=== PATIENT | female | born 1990 | race Caucasian/White ===

== ENCOUNTER 2023-10-04 02:51 | Outpatient (CLI) | payer OTHER | END 2023-10-04 23:59 | disposition short-term general hospital (02) | LOC: EMS 02:51 | DX: R09.89 Other specified symptoms and signs involving the circulatory and respiratory systems (principal); R00.0 Tachycardia, unspecified; R45.89 Other symptoms and signs involving emotional state | CPT/HCPCS: A0425; A0429 ==

== ENCOUNTER 2023-11-17 20:22 | Outpatient (CLI) | payer OTHER | END 2023-11-17 20:23 | disposition critical access hospital (66) | LOC: EMS 20:22 | DX: R07.89 Other chest pain (principal) | CPT/HCPCS: A0425; A0429 ==

== ENCOUNTER 2023-11-17 20:51 | Emergency (ER) | payer OTHER ==
[2023-11-17 21:38] LABS: BASOPHILS # (AUTO) 0.1 10^3/uL (0.0-0.1); BASOPHILS % (AUTO) 0.5 %; EOSINOPHILS # (AUTO) 0.3 10^3/uL (0.0-0.7); HCT - HEMATOCRIT 40.9 % (37.0-47.0); HGB - HEMOGLOBIN 13.4 g/dL (12.0-16.0); LYMPHOCYTES # (AUTO) 2.5 10^3/uL (1.5-3.5); MEAN CORPUSCULAR HEMOGLOBIN 28.4 pg (27.0-31.0); MEAN CORPUSCULAR HGB CONC 32.8 g/dL (32.0-36.0); MEAN CORPUSCULAR VOLUME 86.7 fL (81.0-99.0); MEAN PLATELET VOLUME 9.6 fL (7.9-10.8); MONOCYTES # (AUTO) 0.8 10^3/uL (0.0-1.0); MONOCYTES % (AUTO) 5.2 %; NEUTROPHILS % (AUTO) 74.6 %; PLT - PLATELET COUNT 360 10^3/uL (130-450); RED BLOOD COUNT 4.72 10^6/uL (4.20-5.40); RED CELL DISTRIBUTION WIDTH 13.5 % (12.0-15.0); WHITE BLOOD COUNT 14.8 x10^3/uL (4.8-10.8)
[2023-11-17] MEDS: SODIUM CHLORIDE 0.9% 1,000 ML IV STA (21:40)
[2023-11-17] MEDS: ONDANSETRON 4 MG/2 ML VIAL IVP STA (21:41)
[2023-11-17] MEDS: HYDROmorphone 1 MG/ML CARPUJECT IVP STA (21:42)
[2023-11-17 21:53] LABS: ALBUMIN 4.2 g/dL (3.2-5.5); ALBUMIN/GLOBULIN RATIO 1.5 (1.0-2.2); BILIRUBIN,TOTAL 0.2 mg/dL (0.2-1.0); CALCIUM 9.2 mg/dL (8.5-10.3); CREATININE 0.7 mg/dL (0.6-1.3); POTASSIUM 3.7 mmol/L (3.5-4.5)
[2023-11-17 21:57] LABS: TROPONIN I HIGH SENSITIVITY 2.9 ng/L (2.3-14.8)
[2023-11-17] MEDS: MORPHINE 10 MG/ML VIAL IVP STA (23:08)
[2023-11-17 23:39] VITALS: BP 150/105
--- NOTE | 2023-11-18 00:15 | ED Physician Documentation ---
PD HPI CHEST PAIN - Stated complaint Stated Complaint: CHEST PX - Chief complaint Chief Complaint: Cardiac - History obtained from History obtained from: Patient, Family - Additional information Additional information: The pt comes to the ED with CC of sudden onset of L neck, chest and shoulder pain, radiating down L arm, while riding in the car, looking at her phone. Pt has had similar sx before, but not quite as bad. She has POTS, and is chronically tachycardic, up to the 150's. She denies N/V, but did begin to breathe hard when the chest pain started. The pt states she also gets faint whe n she has these episodes, and tends to be emotionally labile. These are all at baseline for the pt. The pt and partner are in the [employer], and have had work-up at various hospitals since sx started about a year ago. Pt states she thinks it is related to her long-COVID, but no one has been able to give her a solid answer as to why this happens. She has been seen at [facility] for previous ep isodes. The pt has a heart monitor and keeps track of her HR, which she states is always elevated. No other illnesses. Pt states they had a busy day, but she has otherwise felt well. She has an appointment in [place] tomorrow for mental health follow-up. Pt denies h/o DM, smoking, family with young CT, HTN, or personal CAD hx. PD PAST MEDICAL HISTORY - Past Medical History Past Medical History: Yes Cardiovascular: Other Psych: Anxiety, ADD/ADHD Other Past Medical History: orthostatic hypostension, POTS - Past Surgical History Past Surgical History: Yes General: Cholecystectomy Ortho: Other HEENT: Tonsil/Adenoidectomy - Present Medications Home Medications: Ambulatory Orders Medication Instructions Recorded Confirmed Cyclobenzaprine HCl 5 mg PO TID PRN 11/17/23 11/17/23 Fluoxetine HCl [Prozac] 50 mg PO DAILY 11/17/23 11/17/23 Methylphenidate HCl [Relexxii] 54 mg PO DAILY 11/17/23 11/17/23 oxyCODONE [Roxicodone] 5 mg PO Q6HR PRN 11/17/23 11/17/23 - Allergies Allergies/Adverse Reactions: Allergies Allergy/AdvReac Type Severity Reaction Status Date / Time amoxicillin Allergy Hives Verified 11/17/23 20:55 - Social History Does the pt smoke?: No Smoking Status: Never smoker Does the pt drink ETOH?: Yes Does the pt have substance abuse?: No - Immunizations Immunizations are current?: Yes PD ED PE NORMAL - Vitals Vital signs reviewed: Yes - General General: Alert and oriented X 3 (grossly), Well developed/nourished, Other (PT is cooperative, but does occasionally stare off or briefly lose consciousness (for seconds--normal per pt and partner), then wake up tearful. Otherwise NAD) - HEENT HEENT: Atraumatic, PERRL, EOMI, Moist mucous membranes - Neck Neck: Supple, no meningeal sign - Cardiac Cardiac: No murmur, Other (Tachycardic rate, variable in 120's-140's initially) - Respiratory Respiratory: No respiratory distress, Clear bilaterally - Abdomen Abdomen: Soft, Non tender, Non distended - Derm Derm: Normal color, Warm and dry, No rash - Extremities Extremities: No deformity - Neuro Neuro: Other (Alert, grossly intact) - Psych Psych: Other (Cooperative, polite, emotionally labile, intermittently tearful) Results - Vitals Vitals: Oxygen O2 Source Room air - EKG (time done) 2052 EKG releavant findings:: EKG personally interpreted by author of this note. Relevant findings are: Rate: Rate (enter#) (117) Rhythm: Sinus tachycardia [place]: Normal Intervals: Normal [place] QRS: Normal Ischemia: Normal ST segments Compare to prior EKG: Old EKG unavailable Computer interpretation: Agree with computer - Labs Labs: Laboratory Tests 11/17/23 11/17/23 11/17/23 21:30 21:30 23:07 WBC 14.8 H RBC 4.72 Hgb 13.4 Hct 40.9 MCV 86.7 MCH 28.4 MCHC 32.8 RDW 13.5 Plt Count 360 MPV 9.6 Neut # (Auto) 11.0 H Lymph # (Auto) 2.5 [place] # (Auto) 0.8 Eos # (Auto) 0.3 Baso # (Auto) 0.1 Absolute Nucleated RBC 0.00 Nucleated RBC % 0.0 Sodium 134 L Potassium 3.7 Chloride 102 Carbon Dioxide 24 Anion Gap 8.0 BUN 9 Creatinine 0.7 Estimated GFR (MDRD) 96 Glucose 111 H Calcium 9.2 Total Bilirubin 0.2 AST 16 ALT 32 Alkaline Phosphatase 40 L Troponin I High Sens 2.9 3.0 Total Protein 7.0 Albumin 4.2 Globulin 2.8 Albumin/Globulin Ratio 1.5 Lipase 14 PD Medical Decision Making - ED course Complexity details: reviewed old records, reviewed results, re-evaluated patient, considered differential, d/w patient, d/w family ED course: The pt had extensive history of these episodes, but since this was worse and based on the description, I did do a cardiac work-up on the pt. EKG showed ST, and labs including repeat trop were negative. The pt had stated that lorazepam and propranolol had made things worse before, so I treated her with IV fluids and Dilaudid. The pt did report feeling better, though she had some nausea after the Dilaudid. I did speak at length with the pt and her significant other, and they were amenable to discharge. I have d/w pt that she should discuss referral to cardiology with her PCP, since pt has just been transferred here in recent months, and continues to have sx of unclear etiology. We have discussed symptomatic management at home, as well as the usual indications for return. Departure - Departure Disposition: 01 Home, Self Care Clinical Impression: Tachycardia, Postural orthostatic tachycardia syndrome [POTS] Chest pain Qualifiers: Chest pain type: unspecified Qualified Code(s): R07.9 - Chest pain, unspecified Condition: Stable Instructions: ED Chest Pain Atypical Unkn Cause Comments: Your laboratory studies and EKG look good. Your cardiac enzymes are normal and there is no evidence of heart attack or other emergent condition at this time. Please continue to follow closely with your specialist to determine what is the best course of management for your ongoing symptoms. Forms: PCP List Discharge Date/Time: 11/18/23 00:34
[2023-11-18 00:39] VITALS: O2SAT 96
== END 2023-11-18 00:34 | disposition home or self-care (01) ==
LOC: EDUNIT# → ED 20:51
DX: R07.9 Chest pain, unspecified (principal); R00.0 Tachycardia, unspecified; G90.A Postural orthostatic tachycardia syndrome [POTS]
CPT/HCPCS: 36415; 80053; 83690; 84484; 85025; 93005; 96374; 96375; 99283; J1170

== ENCOUNTER 2023-11-24 01:15 | Emergency (ER) | payer OTHER ==
--- NOTE | 2023-11-24 01:45 | ED Physician Documentation ---
PD HPI NVD - Stated complaint Stated Complaint: NAUSEA - Chief complaint Chief Complaint: Abd Pain - History obtained from History obtained from: Patient - Additonal information Additional information: 33-year-old female with reported history of POTS presents for nausea, vomiting, generalized abdominal pain across her abdomen. Nausea began approximately 7:00pm, vomiting began approximately 9 PM, uncontrollable since onset. Attempted to take Zofran at home without relief. Patient states that she feels like she has been hit across the abdomen with a baseball bat. Review of Systems Constitutional: denies: Fever, Chills GI: reports: Abdominal Pain, Nausea, Vomiting. denies: Constipation, Diarrhea Musculoskeletal: denies: Neck pain, Back pain, Extremity pain Neurologic: denies: Generalized weakness, Focal weakness, Numbness PD PAST MEDICAL HISTORY - Past Medical History Cardiovascular: Other Psych: Anxiety, ADD/ADHD, Post traumatic stress disorder - Past Surgical History Past Surgical History: Yes General: Cholecystectomy Ortho: Other HEENT: Tonsil/Adenoidectomy - Present Medications Home Medications: Ambulatory Orders Medication Instructions Recorded Confirmed Cyclobenzaprine HCl 5 mg PO TID PRN 11/17/23 11/24/23 Fluoxetine HCl [Prozac] 50 mg PO DAILY 11/17/23 11/24/23 Methylphenidate HCl [Relexxii] 54 mg PO DAILY 11/17/23 11/24/23 oxyCODONE [Roxicodone] 5 mg PO Q6HR PRN 11/17/23 11/24/23 Ondansetron Odt [Zofran Odt] 1 tab SL Q8H PRN 11/24/23 11/24/23 Promethazine [Phenergan] 25 mg PO Q6H PRN #20 tab 11/24/23 - Allergies Allergies/Adverse Reactions: Allergies Allergy/AdvReac Type Severity Reaction Status Date / Time amoxicillin Allergy Hives Verified 11/24/23 01:28 Penicillins Allergy Anaphylaxis Verified 11/24/23 01:28 - Social History Does the pt smoke?: No Smoking Status: Never smoker Does the pt drink ETOH?: Yes Does the pt have substance abuse?: No - Immunizations Immunizations are current?: Yes PD ED PE NORMAL - Vitals Vital signs reviewed: Yes - General General: Alert and oriented X 3, Other (Uncomfortable, actively vomiting) - Cardiac Cardiac: RRR, Strong equal pulses - Respiratory Respiratory: No respiratory distress, Clear bilaterally - Abdomen Abdomen: Soft, Other (generalized tenderness to deep palpation without rebound or guarding) - Derm Derm: Normal color, Warm and dry, No rash - Extremities Extremities: No deformity, No tenderness to palpate, Normal ROM s pain, No edema - Neuro Neuro: Alert and oriented X 3, pony trimmer 2-12 intact, No motor deficit, Normal speech Results - Vitals Vitals: Vital Signs - 24 hr 11/24/23 01:22 Temperature 37.1 C Heart Rate 104 H Respiratory 26 H Rate Blood Pressure 136/80 H O2 Saturation 98 Oxygen O2 Source Room air - Labs Labs: Laboratory Tests 11/24/23 11/24/23 01:53 01:53 WBC 15.0 H RBC 4.79 Hgb 13.3 Hct 41.7 MCV 87.1 MCH 27.8 MCHC 31.9 L RDW 14.1 Plt Count 324 MPV 9.4 Neut # (Auto) 13.2 H Lymph # (Auto) 0.6 L [place] # (Auto) 0.8 Eos # (Auto) 0.3 Baso # (Auto) 0.1 Absolute Nucleated RBC 0.00 Nucleated RBC % 0.0 Sodium 136 Potassium 4.4 Chloride 104 Carbon Dioxide 23 Anion Gap 9.0 BUN 10 Creatinine 0.7 Estimated GFR (MDRD) 96 Glucose 134 H Calcium 9.0 Total Bilirubin 0.3 AST 14 ALT 27 Alkaline Phosphatase 33 L Total Protein 7.2 Albumin 4.1 Globulin 3.1 Albumin/Globulin Ratio 1.3 Lipase 11 PD Medical Decision Making - ED course Complexity details: reviewed old records, reviewed results, re-evaluated patient, considered differential, d/w patient, d/w family ED course: Profuse nausea with vomiting. Patient mildly retching into emesis bag on arrival. Abdomen soft but generally tender. Will order laboratory work, fluids, Zofran, droperidol. Patient has tolerated p.o. water, sleeping in bed on repeat assessment, however when woken she states that it still feels like she is very nauseous and if she sits up in bed she will vomit. Still endorsing the sensation of a baseball bat hitting her across her stomach. Abdomen is soft, nondistended, however since she is still symptomatic we will order CT of the abdomen and pelvis with contrast for further assessment. Additional antiemetics ordered. Patient has remained fast asleep with no further episodes of emesis since patient has arrived to the emergency department. CT of the abdomen and pelvis shows no acute abnormalities. Patient and her at bedside were updated of all results. Patient states that she has Zofran at home, I offered a prescription for Phenergan pills as well as Phenergan suppositories. Patient stated that she would take the pills but did not want the suppositories. Recommended light diet for the next several days as well as slow but steady oral fluid intake. Departure - Departure Disposition: 01 Home, Self Care Clinical Impression: Abdominal pain, Vomiting Condition: Stable Instructions: Abdominal Pain, ED Nausea Vomiting Prescriptions: Promethazine [Phenergan] 25 mg PO Q6H PRN #20 tab PRN Reason: Nausea / Vomiting Forms: PCP List
[2023-11-24 01:59] LABS: BASOPHILS # (AUTO) 0.1 10^3/uL (0.0-0.1); BASOPHILS % (AUTO) 0.3 %; EOSINOPHILS # (AUTO) 0.3 10^3/uL (0.0-0.7); EOSINOPHILS % (AUTO) 2.1 %; HCT - HEMATOCRIT 41.7 % (37.0-47.0); HGB - HEMOGLOBIN 13.3 g/dL (12.0-16.0); LYMPHOCYTES # (AUTO) 0.6 10^3/uL (1.5-3.5); LYMPHOCYTES % (AUTO) 4.1 %; MEAN CORPUSCULAR HEMOGLOBIN 27.8 pg (27.0-31.0); MEAN CORPUSCULAR HGB CONC 31.9 g/dL (32.0-36.0); MEAN CORPUSCULAR VOLUME 87.1 fL (81.0-99.0); MEAN PLATELET VOLUME 9.4 fL (7.9-10.8); MONOCYTES # (AUTO) 0.8 10^3/uL (0.0-1.0); MONOCYTES % (AUTO) 5.1 %; NEUTROPHILS # (AUTO) 13.2 10^3/uL (1.5-6.6); NEUTROPHILS % (AUTO) 88.1 %; PLT - PLATELET COUNT 324 10^3/uL (130-450); RED BLOOD COUNT 4.79 10^6/uL (4.20-5.40); RED CELL DISTRIBUTION WIDTH 14.1 % (12.0-15.0)
[2023-11-24 02:12] LABS: ALBUMIN 4.1 g/dL (3.2-5.5); ALBUMIN/GLOBULIN RATIO 1.3 (1.0-2.2); BILIRUBIN,TOTAL 0.3 mg/dL (0.2-1.0); CREATININE 0.7 mg/dL (0.6-1.3); POTASSIUM 4.4 mmol/L (3.5-4.5); TOTAL PROTEIN 7.2 g/dL (6.4-8.9)
[2023-11-24] MEDS: SODIUM CHLORIDE 0.9% 1,000 ML IV STA ×2 (02:12→04:33)
[2023-11-24] MEDS: DROPERIDOL 5 MG/2 ML VIAL IVP STA (02:12)
[2023-11-24] MEDS: ONDANSETRON 4 MG/2 ML VIAL IVP STA (02:12)
[2023-11-24] MEDS ORDERED: iohexoL-300 100 ML VIAL ONE (03:50)
[2023-11-24] MEDS: iohexoL-300 100 ML VIAL IVP ONE (04:29)
[2023-11-24] MEDS: PROCHLORPERAZINE 10 MG/2 ML VIAL IVP STA (04:32)
[2023-11-24 06:00] VITALS: BP 120/80; O2SAT 94
--- NOTE | 2023-11-24 08:46 | CT Report ---
PROCEDURE: Abdomen/Pelvis W INDICATIONS: MIDEPIGASTRIC ABD PAIN, N/V CONTRAST: Omni 300, 100mls TECHNIQUE: After the administration of intravenous contrast, a CT scan of the abdomen and pelvis was performed. Images were recorded and evaluated at appropriate window settings. Reformats: coronal and sagittal. F or radiation dose reduction, the following was used: automated exposure control, adjustment of mA and /or kV according to patient size. COMPARISON: None. FINDINGS: Image quality: Diagnostic. Lower chest: Unremarkable. Liver: No solid mass. Normal size. Mild hepatic steatosis. Gallbladder and biliary tree: Cooperative is surgically absent. No biliary dilation. Spleen: No splenomegaly. Pancreas: No pancreatic ductal dilation. Adrenals: No adrenal nodule. Kidneys and ureters: No hydronephrosis. No renal cystic lesion which requires follow up. No solid mas s. Stomach, bowel and peritoneum: Fluid-filled small intestine demonstrates normal caliber. No bowel dis tension. No pathologic free fluid. Lymph nodes: No central or retroperitoneal adenopathy. Vessels: No infrarenal aortic aneurysm. PELVIS Reproductive organs: Unremarkable. Bladder: No abnormal wall thickening, accounting for underdistention. Pelvic lymph nodes: No pelvic adenopathy by size criteria. Bones: No aggressive osseous abnormality. Other: No significant ventral or inguinal hernia. IMPRESSION: 1. Associated small intestine demonstrates normal caliber. The findings nonspecific and can be seen i n gastroenteritis. Recommend clinical correlation. No significant discrepancy with the preliminary interpretation. Reviewed by: Freda Brown MD on 11/24/2023 8:44 AM [facility] Approved by: Freda Brown MD on 11/24/2023 8:44 AM PST Station ID: [id number]
== END 2023-11-24 05:40 | disposition home or self-care (01) ==
LOC: ED 01:15
DX: R10.84 Generalized abdominal pain (principal); R11.2 Nausea with vomiting, unspecified; Z79.899 Other long term (current) drug therapy
CPT/HCPCS: 36415; 74177; 80053; 83690; 85025; 93005; 96374; 96375; 99284; Q9967

== ENCOUNTER 2024-02-17 20:02 | Outpatient (CLI) | payer OTHER | END 2024-02-17 20:03 | disposition EMS.NT | LOC: EMS 20:02 | DX: R07.89 Other chest pain (principal); R05.9 Cough, unspecified ==

== ENCOUNTER 2024-06-24 02:49 | Outpatient (CLI) | payer OTHER | END 2024-06-24 23:59 | disposition EMS.NT | LOC: EMS 02:49 | DX: F41.9 Anxiety disorder, unspecified (principal); R00.2 Palpitations ==